=== PATIENT | female | born 1955 | race Caucasian/White ===

== ENCOUNTER 2024-06-10 10:46 | Outpatient (RCR) | payer MEDICARE, BC, SELFPAY ==
--- NOTE | 2024-06-10 11:40 | CTCFLWUP_ITS ---
[facility] [address] [place], [place] [address] FOLLOW-UP NOTE Date: 06/10/2024 MR#: [id number] Name: YASMEEN HAYES : 1955 Dx: C50.312 Malignant neoplasm of lower-inner quadrant of left female breast Identification. Patient with recently diagnosed papillary thyroid carcinoma stage II T1bN1a status p ost total thyroidectomy performed 12/22/2023. Patient has been off thyroid medication and her TSH is in the 40s. She was felt to be at least intermediate risk and 100 mCi of radioactive iodine was recommended. Radiation safety was discussed. Avoid seafood several days prior to the procedure and we will schedu robbie for follow-up following the total body iodine scan. Electronically signed by: Henrik Santiago M.D. 06/10/2024 11:37 AM
== END 2024-07-06 23:59 | disposition home or self-care (01) ==
LOC: SCTC 10:46
PROVIDERS: PCP Internal Medicine Hematology & Oncology; Referring Provider Internal Medicine Hematology & Oncology; Visit Provider Radiology Therapeutic Radiology
DX: C73 Malignant neoplasm of thyroid gland (principal); E89.0 Postprocedural hypothyroidism
CPT/HCPCS: 99213; G0463

== ENCOUNTER → 2024-07-15 | Outpatient (CLI) | payer MEDICARE, BC, SELFPAY | END | disposition home or self-care (01) | PROVIDERS: PCP Family Medicine; Referring Provider Radiology Therapeutic Radiology; Visit Provider Radiology Therapeutic Radiology | DX: Z53.8 Procedure and treatment not carried out for other reasons (principal) ==

== ENCOUNTER 2024-07-26 13:14 | Outpatient (RCR) | payer MEDICARE, BC, SELFPAY ==
--- NOTE | 2024-07-26 13:50 | CTCFLWUP_ITS ---
[facility] [address] [place], [place] [address] FOLLOW-UP NOTE Date: 07/26/2024 MR#: [id number] Name: YASMEEN HAYES : 1955 Dx: C50.312 Malignant neoplasm of lower-inner quadrant of left female breast C73 thyroid cancer Identification. Patient with history of left breast CA 2A being followed by in [place]. Stage II TibN1a papillary thyroid carcinoma status post total thyroidectomy performed 12/22/2023. [place] t to be intermediate risk for recurrence. Underwent 104 millicuries of radioactive iodine followed by total body iodine scan completed 07/15/2024 . There was increased isotope accumulation thyroid bed and mid chest. Patient followed radiation sa fety precaution and is feeling tired but otherwise well. Assessment #1 papillary thyroid carcinoma stage II total thyroidectomy postop radioiodine 104 mCis wi th scan showing uptake in thyroid bed and mid chest 07/15/2024. #2. Gradually increase the Synthroid to 100 mcg a day check labs including thyroid functions in about 2 weeks. along with thyroglobulin thyroglobulin antibody. #3. CT scan neck chest prior to next visit. #4 follow-up in 3 months. Cc: Dr Reyes GOLDBERG (q) [phone] Electronically signed by: Henrik Santiago M.D. 07/26/2024 1:48 PM
== END 2024-08-06 23:59 | disposition home or self-care (01) ==
LOC: SCTC 13:14
PROVIDERS: PCP Family Medicine; Referring Provider Family Medicine; Visit Provider Radiology Therapeutic Radiology
DX: C73 Malignant neoplasm of thyroid gland (principal); E89.0 Postprocedural hypothyroidism; Z92.3 Personal history of irradiation; Z79.890 Hormone replacement therapy
CPT/HCPCS: 99213; G0463

== ENCOUNTER 2024-10-26 10:29 | Outpatient (RCR) | payer MEDICARE, BC, SELFPAY ==
--- NOTE | 2024-10-26 11:18 | CTCFLWUP_ITS ---
[facility] [address] [place], [place] [address] FOLLOW-UP NOTE Date: 10/26/2024 MR#: [id number] Name: YASMEEN HAYES : 1955 Dx: C50.312 Malignant neoplasm of lower-inner quadrant of left female breast Identification. Patient with history of left breast CA 2A being followed by Dr. Chambers in [place] Referred for stage II T1b N1a papillary thyroid carcinoma status post total thyroidectomy performed 12/22/2023. [place] to be intermediate risk for recurrence. Underwent 104 mCi of radioactive iodine followed by total by iodine scan completed 07/15/2024. There was increased isotope uptake in thyroid bed and mid chest. Ordered labs and CT prior to this visit but this was somehow missed. Patient was also prescribed 100 mcg of Synthroid a day which she stopped taking although patient states that she took some of her daughters thyroid medications including today.. A#1. Stage II T1b N1a papillary thyroid carcinoma status post total thyroidectomy 12/22/2023 postop 104 mCi of radioiodine followed by total body iodine scan 07/15/2024. #2. Prescribe Synthroid 100 mcg a day.. #3. Will check thyroid functions thyroglobulin thyroglobulin antibody and get CT scan of the neck chest. Patient wants it done close to where she lives in [place] at [facility]. #4. Follow-up in 2 months. Electronically signed by: Henrik Santiago M.D. 10/26/2024 11:16 AM
== END 2024-11-03 23:59 | disposition home or self-care (01) ==
LOC: SCTC 10:29
PROVIDERS: Referring Provider Radiology Therapeutic Radiology; Visit Provider Radiology Therapeutic Radiology
DX: C73 Malignant neoplasm of thyroid gland (principal); E89.0 Postprocedural hypothyroidism; Z92.3 Personal history of irradiation; Z85.3 Personal history of malignant neoplasm of breast
CPT/HCPCS: 99213; G0463

== ENCOUNTER 2025-01-06 12:59 | Outpatient (RCR) | payer MEDICARE, BC, SELFPAY ==
--- NOTE | 2025-01-06 14:20 | CTCFLWUP_ITS ---
[facility] [address] [place], [place] [address] FOLLOW-UP NOTE Date: 01/06/2025 MR#: [id number] Name: YASMEEN HAYES : 1955 Dx: C50.312 Malignant neoplasm of lower-inner quadrant of left female breast C73 thyroid cancer Identification. Patient with history of left breast CA 2A being followed by Dr. Chambers in [place] Received postop post chemoradiation completed 11/21/2016. Referred for stage 2 T1BN1A papillary thyroid carcinoma status post total thyroidectomy performed 12/22/2023. [place] to have intermediate risk of recurrence underwent 104 mCi of radioiodine followed by total body iodine scan performed 07/15/2024. Increased isotope uptake in thyroid and mid chest. 07/22/2024. CT of the neck chest 11/09/2024 revealed no cervical adenopathy chest showing dependent atelectasis no particular sign of tumor recurrence or pulmonary nodularity. Patient has been on 100 mcg of Synthroid. With labs being done where she lives in [place] at [facility] [place]. 12/22/2024 TSH 6.68 (0..45-5.33) T4 free 1.75 (0.92 ? 1.68) Thyroglobulin antibody 33.5 thyroglobulin less than 0.10 Patient states that she is somewhat tired but generally feels well. No neck adenopathy lungs are clear. Assessment #1 history of left breast CA stage IIa being followed by Dr. Chambers [facility] #2. Stage II papillary thyroid carcinoma status post total thyroidectomy postop radioiodine 07/15/2024. CT 11/09/2024 no sign of recurrence in neck or chest. #3. I will see patient again in 3 months time. Told patient to get labs prior to next visit at [facility] in [place]. Electronically signed by: Henrik Santiago M.D. 01/06/2025 2:18 PM
== END 2025-02-03 23:59 | disposition home or self-care (01) ==
LOC: SCTC 12:59
PROVIDERS: PCP Family Medicine; Referring Provider Radiology Therapeutic Radiology; Visit Provider Radiology Therapeutic Radiology
DX: Z08 Encounter for follow-up examination after completed treatment for malignant neoplasm (principal); Z85.850 Personal history of malignant neoplasm of thyroid; E89.0 Postprocedural hypothyroidism; Z92.3 Personal history of irradiation; Z85.3 Personal history of malignant neoplasm of breast; Z92.21 Personal history of antineoplastic chemotherapy
CPT/HCPCS: 99212; G0463

== ENCOUNTER 2025-04-12 10:47 | Outpatient (RCR) | payer MEDICARE, BC, SELFPAY ==
--- NOTE | 2025-04-12 11:31 | CTCFLWUP_ITS ---
[facility] [address] [place], [place] [address] FOLLOW-UP NOTE Date: 04/12/2025 MR#: [id number] Name: YASMEEN HAYES : 1955 Dx: C50.312 Malignant neoplasm of lower-inner quadrant of left female breast Identification. Patient with history of left breast CA 2A being followed by Dr Chambers medical oncologist in [place]. Received postop chemoradiation completed 11/21/2016. Referred for stage II T1b N1a papillary thyroid carcinoma status post total thyroidectomy performed 12/22/2023. For intermediate risk of recurrence underwent 104 mCi of radioiodine followed by total body iodine scan completed 07/15/2024. Increased isotope uptake in thyroid and mid chest 07/22/2024. CT neck chest 11/09/2024 no evidence of adenopathy or recurrence. Labs 04-30 TSH low at 0.20 free T4 high at 2.36 Thyroglobulin less than 0.1 0 thyroglobulin antibody 13.3 patient has been on 100 mcg of Synthroid a day. A#1. Stage II T1b N1a papillary thyroid carcinoma status post total thyroidectomy performed 12/22/2023. #2. status post 104 mCi radioiodine told by that scan 07/15/2024 increased uptake in thyroid and mid chest. #3. CT neck chest November 09 no evidence of adenopathy or recurrence. #4. On 100 mcg of Synthroid most recent lab tests 04/07/25 slightly high free T4 slightly low TSH. With low thyroglobulin moderate thyroglobulin antibody numbers #6. told to decrease Synthroid to 88 mcg/day will check labs before next visit. #7. Dr. Chambers following her for breast cancer history. Electronically signed by: Henrik Santiago M.D. 04/12/2025 11:29 AM
== END 2025-05-06 23:59 | disposition home or self-care (01) ==
LOC: SCTC 10:47
PROVIDERS: PCP Family Medicine; Referring Provider Family Medicine; Visit Provider Radiology Therapeutic Radiology
DX: Z08 Encounter for follow-up examination after completed treatment for malignant neoplasm (principal); Z85.850 Personal history of malignant neoplasm of thyroid; E89.0 Postprocedural hypothyroidism; Z85.3 Personal history of malignant neoplasm of breast; Z79.890 Hormone replacement therapy
CPT/HCPCS: 99213; G0463

== ENCOUNTER → 2025-05-23 | Outpatient (CLI) | payer MEDICARE, BC, SELFPAY ==
--- NOTE | 2025-05-23 14:00 | XR_ITS ---
EXAMINATION: Thyroid sonography complete TECHNIQUE: Grayscale sonographic images thyroid lobes Date and time: May 23, 2025, 1419 hours INDICATIONS: Diagnosis malignant neoplasm of thyroid gland, thyroid removed 2022. FINDINGS: No thyroid tissue No soft tissue mass in the thyroid bed IMPRESSION: No soft tissue in the thyroid bed, no lymphadenopathy
== END | disposition home or self-care (01) ==
PROVIDERS: PCP Family Medicine; Referring Provider Radiology Therapeutic Radiology; Visit Provider Radiology Therapeutic Radiology
DX: C73 Malignant neoplasm of thyroid gland (principal); C50.312 Malignant neoplasm of lower-inner quadrant of left female breast
CPT/HCPCS: 76536